=== PATIENT | male | born 1955 | race Caucasian/White ===

== ENCOUNTER → 2016-11-29 | Day surgery (SDC) | payer OTHER ==
[~2016-11-29] VITALS: Ht 185.4 cm; Wt 93.4 kg
[~2016-11-29] MED LIST: ASTA4CAP PO; Acetaminophen IV 1,000 mg IV SCH; Atropine 0.4 mg/mL Inj IVPUSH PRN; Bupivacaine Liposome 1.3% 20 mL Inj INFILTRATE SCH; Bupivacaine-MPF 0.5% 30 mL Inj INFILTRATE ONE; CELE200C PO; CeFAZolin Inj 2 GM in IV Premix 1 EACH IV SCH; Dexamethasone 4 mg/mL Inj IVPUSH PRN; EPHEDrine Sulfate 50 mg/mL Inj IVPUSH PRN; GLUC-120 PO; HYDROmorphone 1 mg/mL Inj IVPUSH PRN; Labetalol 5 mg/mL 20 mL Inj IV PRN; Lactated Ringer's 1,000 ML IV ONE; Lactated Ringer's 1,000 ML IV SCH; Lactated Ringer's 500 ML IV PRN; MULT-1018 PO; MetoCLOpramide 5 mg/mL 2 mL Inj IVPUSH PRN; OMEG1CAP25 PO; Ondansetron 2 mg/mL 2 mL Inj IVPUSH PRN; Ondansetron 2 mg/mL 2 mL Inj ONE; Phenylephrine 10,000 mCg/mL Inj IVPUSH PRN; Propofol 10,000 mCg/mL 20 mL Inj ONE; fentaNYL-PF 50 mCg/mL 2 mL Inj IVPUSH PRN; fentaNYL-PF 50 mCg/mL 2 mL Inj ONE; hydrALAZINE 20 mg/mL Inj IVPUSH PRN
[2016-11-29 10:45] VITALS: BP 125/92; PULSE 46; RESP 16; O2SAT 100
--- NOTE | 2016-11-29 10:58 | PCM.HPANE ---
Patient Data Date of Service: Nov 29, 2016 Surgeon Admitting Provider: Attending Provider:Bri Sanchez MD Primary Care Physician:Joe Lopez DO Other Provider:Rome Solano Anesthesia Reason for Visit Right Testicular Mass Ht/WT & BMI Height (Feet): 6 Height (Inches): 1 Weight (Kilograms): 93.4 Body Mass Index 27.00 Allergies Coded Allergies: No Known Allergies (Unverified Allergy, Unknown, 11/26/16) Past Anesthesia History Anesthesia History: Denies:: Anesthesia Reactions, Difficult Intubation, Fam Anesthesia Reaction, Fam Malignant Hypertherm, Malignant Hyperthermia Diabetes History Hx Diabetes?: No MRSA MRSA: No Medications Hypertension Medication: No Home Meds Incl Beta Shaggy: No Reported Medications [place]-3 Fatty Acids/Fish Oil ([place] 3 Fish Oil Softgel)1 Each Capsule.dr1 Each PO DAILY 11/26/16 Multivitamin (Multi Vitamin Daily)1 Each Tablet1 Each PO DAILY 30 Days Ref 0 11/26/16 Gluc 2Kcl/Chondr/Summer Hy/Hy AC (Glucosamine & Chondroitin Cap)1 Each Capsule2 Each PO DAILY 11/26/16 Astaxanthin 4 Mg Capsule4 Mg PO DAILY 11/26/16 Discontinued Reported Medications Celecoxib (Celebrex)200 Mg [id number] Mg PO DAILY #30 CAPSULE Ref 0 11/26/16 FISH OIL/BORAGE/FLAX/OM3,6,9#1-Expunged, Do N (OMEGA 3-6-9 COMP-Expunged, Do Not Renew!)1 Each Capsule1 Each PO NO DIRECTIONS 04/24/13 Astaxanthin 4 Mg Capsule4 Mg PO NO DIRECTIONS 04/24/13 Glucosamine Sulfate 2KCL (Glucosamine)1,000 Mg Tablet1,500 Mg PO DAILY 03/26/13 MULTIVITAMIN-Expunged Drug, Do Not Renew! (MULTI VITAMIN -Expunged Drug, Do Not Renew!)1 Each Tablet1 Tab PO DAILY 03/26/13 History History of ENT Problems?: No HEENT History: Denies:: Difficult Intubation Hearing Problem Denture Type: None Teeth Condition: Within Normal Limits Hx of Heart Problems?: No Cardiovascular History: Denies:: Cardiac Surgery Chest Pain Hypertension Hx of Respiratory Problem?: No Respiratory History: Denies:: Asthma COPD Oxygen Administration Pneumonia Use of C-PAP Machine Hx Neurologic Problems?: No Neurological History: Denies:: CVA Dementia Multiple Sclerosis Parkinson's Disease Seizures Hx of GI Problems?: Yes Gastrointestinal History: Denies:: Gastroesphageal Reflux Hx of Problems?: No Male Hx: Positive for:: Testicular Surgery (right testicular mass current admission problem) Skin History: Positive for:: History Skin Disorders? (psoriasis, eczema) Hx Musculoskeletal Problems?: Yes Musculoskeletal History: Positive for:: Osteoarthritis Denies:: Joint Replacement Psycho Social History: Denies:: Anxiety Hx Depression Hx Surgeries?: Yes (LEFT KNEE, right foot bunion) Hx Any Other Health Problems?: Yes Other History: Denies:: Cancer Thyroid Disease Hx Diabetes: No Other Pertinent History: testicular mass concerning for neoplast Hx Alcohol Use: Yes (RARE)Hx Substance Use: Yes (marijuana)Have You Smoked inLast 12 mo: No Stop/Bang Treated for Sleep Apnea?: No Do You Have a CPAP Machine?: No P-Blood Pressure: treated: No B- Body Mass Index > 35 kg/m2: No A- Age over 50: Yes N- Neck Large Circumference: No G- Gender Male: Yes LAURA Risk Assessment: Low Risk, <3 Yes Risk Assessment Category Category 1A: Patient has history of documented sleep apnea, and HAS NOT received any narcotic, sedative or anesthesia administration during this stay. Category 1B: Patient has history of documented sleep apnea, and HAS received any narcotic , sedative or anesthesia administration during this stay Category 2: Patient has SUSPECTED Obstructive Sleep Apnea, and HAS received any narcotic , sedative or anesthesia administration during this stay. Category 3: Patient has SUSPECTED Obstructive Sleep Apnea and HAS NOT received narcotic, sedative or anesthesia administration during this stay. Category 4: Outpatient in Procedural Areas with known sleep apnea or who screen positive for High Risk via the STOP/BANG questionnaire. Exam Exam Vital Signs Vital Signs Date Time Temp Pulse Resp B/P Pulse Ox O2 Delivery O2 Flow Rate FiO2 11/29/16 10:45 36.3 46 16 125/92 100 Room Air General Appearance: Alert, Oriented X3, Cooperative HEENT/AIRWAY: MP 2, Neck Movement, Mouth Opening (Wide) Lungs: Clear to Auscultation, Normal Air Movement Heart: Regular Rate/Rhythm, Normal S1, Normal S2 Meds/Labs/Diagnostics Admission Meds Current Medications Lactated Ringer's (Lr) 1,000 ml @ ud STK-MED ONCE IV Last administered on 9/11 /17at 10:32; Start 11/29/16 at 10:32; Stop 11/29/16 at 10:33; Status DC Plan Impression Patient chart reviewed, patient interviewed and anesthestic plan with risks, benefits, and alternatives discussed, and informed consent obtained. ASA Physical Status: ASA2 Plus Emergency Anesthetic Plan: GA Bene/Risks/Altern/Consents: Yes HP Complete Prior to Induction: Yes Elbert Solano MD Nov 29, 2016 10:58
[2016-11-29 13:58] VITALS: BP 161/84; PULSE 49; RESP 14; O2SAT 100
--- NOTE | 2016-11-29 14:03 | PCM.ANEP1 ---
Post Anesthesia PACU Phase 1 Assessment Date of Service: Nov 29, 2016 Vital Signs Vital Signs Date Time Temp Pulse Resp B/P Pulse Ox O2 Delivery O2 Flow Rate FiO2 11/29/16 13:58 36.5 49 14 161/84 100 Simple Mask 8 11/29/16 10:45 36.3 46 16 125/92 100 Room Air Anesthetic Administered: GA Level of Alertness: Awake, talking WALKER's with Equal Strength: Yes Pain: No Nausea or Vomiting: No CV Function & Hydration Stable: Yes Airway Device: Oxygen Delivery: Simple Mask Lungs: Normal Air Movement PACU Phase 2 Assessment Complications: No Follow up Care: N/A Patient Instructions Provided: N/A lEbert Solano MD Nov 29, 2016 14:03
[2016-11-29 14:05] VITALS: BP 138/80; PULSE 48; RESP 13; O2SAT 94
[2016-11-29 14:15] VITALS: BP 133/84; PULSE 50; RESP 11; O2SAT 94
[2016-11-29 14:34] VITALS: BP 139/85; PULSE 46; RESP 14; O2SAT 97
[2016-11-29 15:41] VITALS: BP 139/84; PULSE 48; RESP 15; O2SAT 99
--- NOTE | 2016-11-30 10:50 | OP ---
[address] [address] OPERATIVE REPORT PATIENT: WAQAS CASTORENA : 1955 MR#: [id number] ADMIT: 11/29/2016 JOB ID: [id number] CORRECTED REPORT: DATE OF SURGERY: 11/29/2016 PREOPERATIVE DIAGNOSIS(ES): Right testicular mass. POSTOPERATIVE DIAGNOSIS(ES): Right testicular mass. OPERATION PERFORMED: Right radical orchiectomy. SURGEON: Bri Sanchez MD ANESTHESIOLOGIST: Elbert Solano MD ANESTHESIA: General plus 0.5% plain Marcaine. FINDINGS: The tunica vaginalis was not opened. There was heterogeneity seen within the confines of the tunica vaginalis. The entire specimen with attached cord was submitted to pathology for routine gross microscopic examination. The remainder of tissue planes were within normal limits. PROCEDURE SUMMARY: The patient was positioned in supine and was administered general anesthesia. He was then repositioned in semi-lithotomy, and the lower abdomen, genitalia, and groin were prepped and draped in sterile fashion. Local anesthetic was used to infiltrate the skin and subcutaneous tissue over an oblique line over the right inguinal canal. Sharp incision was then made taken down through the layers of the subcutaneous fat and Thompson's fascia to the anterior surface of the external oblique. This was then incised in line with its fibers the full length of the canal. The cord was then carefully identified and isolated from the confines and attachments of the inguinal canal. Next the cord was divided into two bundles and suture ligature of 0-Ti-Cron were then placed on each bundle proximally individually as well as the entire bundle with a secondary tie. The distal end was tied off similarly and a Jesusita clamp was left attached for handling and manipulation. The cord was then transected. The internal ring was then widely open with careful blunt dissection, to at which point the testicle with attached cord could be delivered from within the confines of the right hemiscrotum. The gubernaculum was then divided with the cautery pen. Hemostasis was excellent. The final inspection revealed excellent hemostasis. The external oblique fascia was then closed with running 2-0 Monocryl. Thompson's fascia layer was closed using the same suture in interrupted fashion. Finally, the skin was reapproximated with a running subcuticular of 4-0 Monocryl. The skin was cleaned and a thin strip of Telfa was applied along the incision and then an OpSite dressing was applied over the skin incision. The patient was then awakened, transferred to the [facility], and transferred to recovery in stable condition. Corrected by SOLEDAD 12/03/16 at 10:49am DOS.
--- NOTE | 2016-12-06 08:10 | PATH ---
SURGICAL PATHOLOGY Attending Physician:Bri Sanchez MD CASE STATUS: Signed Out PATIENT NAME: WAQAS CASTORENA PID: [id number] : 1955 DATE COLLECTED:11/29/2016 23:34 SPECIMEN: Testis, Tumor CLINICAL HISTORY: RIGHT TESTICULAR MASS 1). RIGHT TESTICLE FINAL DIAGNOSIS: Testis, Radical Orchiectomy: Specimen laterality: Right. Tumor focality: Unifocal. Tumor size: 3.5 cm maximum dimension. 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 Tumor extension: Not identified. Margins: Spermatic cord margin: Negative. Other margins: Not applicable. Lymphovascular invasion: Not identified. Regional lymph nodes: No lymph nodes submitted. Pathologic stage (pTMN, AJCC 7th Edition): pT1, pNX, pMX. ICD10: C62.1 GROSS DESCRIPTION: The specimen is received in formalin, labeled with the patient's name, sublabeled as right testicle, weighs 238 g, and consists of a testis encased in a clear yellow fluid-filled cavum vaginale (10.8 x 7.5 x 6.8 cm). After the fluid has been removed, the specimen weighs 97 g, and consists of a testis (4.3 x 3 .I3 0.5 cm), epididymis (4.5 x 1.7 x 0.4 cm), attached portion of spermatic cord (length-7.3 cm, diameter-1.4 x 1.1 cm), and tunica vaginalis. The testis consists of a thin rim of pale ragsdale-pink spongy normal parenchyma (up to 0.5 cm in depth) surrounding a pale yellow hemorrhagic solid firm partially friable irregular mass (3.5 x 3.4 x 3.0 cm). The mass is 9.8 cm from the resection margin, 4.8 cm from the epididymis, 0.1 cm from the tunica albuginea, and 0.2 cm from the tunica vaginalis. The mass appears to be confined to the testis and does not extend into the tunica albuginea. The tunica albuginea is pale pink smooth and flat. The epididymis is from the testis and attached to the tunica vaginalis. The cut surface is ragsdale, spongy, and otherwise unremarkable. The spermatic cord is fatty and unremarkable. Multiple adhesions attach the tunica vaginalis to the tunica albuginea. Ink code: black-resection margin. Section code: (A) resection margin and spermatic cord serial section promotional representative; (B) testis, mass, adhesion; (C-F) testis, lengthwise full cross section; (G) testis, tunica vaginalis, perpendicularly sectioned, promotional representative; (H) epididymis, tunica vaginalis, serially sectioned, promotional representative. 11/30/16 JM Additional sections: (I-K) periphery of the tumor, promotional representative. 12/02/16 JM After initial examination of the testicular tumor, additional sections were submitted from the periphery due to the extensive necrosis in the original sections examined. The additional blocks are sublabeled I-K. ([id number]) MICRO DESCRIPTION: Sections from the testicular tumor show a predominance of malignant cells with nuclear and cytoplasmic features characteristic of seminoma. In areas, however, the tumor cells appear cytologically more atypical and have a more confluent pattern rather than being dyscohesive. In order to exclude the possibility of a solid embryonal carcinoma, immunohistochemistry is performed with the following results: STAINRESULT CD117:Uniformly positive in tumor cells. OCT-3/4:Uniformly positive in tumor cells. D2-40:Uniformly positive in tumor cells. LYNNE:Negative in tumor cells. CD30:Negative in tumor cells. The pattern of immunoreactivity excludes the presence of an embryonal carcinoma. ICD-9 CODES: CPT CODES: 1: 27990, 06376, 48015, 05418, 11064 Electronically Signed Out Scott Youssef MD, PhD [facility] [address], [place] [address] Technical component performed at [facility], [address], [place], [address]
== END | disposition home or self-care (01) ==
LOC: SAS 10:19
PROVIDERS: ATTEND Specialist
DX: C62.10 Malignant neoplasm of unspecified descended testis (principal); N43.3 Hydrocele, unspecified; N50.811 Right testicular pain; M19.90 Unspecified osteoarthritis, unspecified site
CPT/HCPCS: 54530; J0131; J0690; J2250; J2405; J2704; J3010; J7120